=== PATIENT | female | born 1985 | race Caucasian/White ===

== ENCOUNTER 2016-09-01 05:50 | Inpatient (IN) | payer MEDICAID ==
[~2016-09-01] VITALS: Ht 157.5 cm; Wt 95.4 kg
[~2016-09-01 05:50] MED LIST: PREN1TAB53 PO; no routine meds
[2016-09-01] MEDS ORDERED: LIDOCAINE 1% (10mg/ml) 2ml SDV ID PRN (06:00)
[2016-09-01] MEDS ORDERED: ACETAMINOPHEN 500 MG TABLET PO PRN ×2 (06:00→14:45)
[2016-09-01] MEDS ORDERED: MAG-AL + SIM LIQUID 30 ML UDC PO PRN ×2 (06:00→14:45)
[2016-09-01] MEDS ORDERED: OXYTOCIN 30 UNIT in D5LR 500 ML SCH (06:00)
[2016-09-01] MEDS ORDERED: CALCIUM CARBONATE 500mg Chewable TAB PO PRN ×2 (06:00→14:45)
[2016-09-01] MEDS: LR 1,000 ML IV PRN ×2 (06:33→08:54)
[2016-09-01 06:38] LABS: HCT - HEMATOCRIT 34.1 % (36-46); HGB - HEMOGLOBIN 11.3 GM/DL (12-16); MEAN CORPUSCULAR HGB 27.2 UUG (26-34); MEAN CORPUSCULAR HGB CONC(MCHC 33.1 GM/DL (31-37); MEAN PLATELET VOLUME 10.6 UM3 (9.4-12.4); RED BLOOD COUNT 4.16 M/MM3 (4.00-5.20); WBC - WHITE BLOOD COUNT 12.7 T/MM3 (4.5-11.0)
[2016-09-01 06:46] VITALS: BP 135/67; PULSE 56; RESP 18; TEMP 98.2; O2SAT 98
[2016-09-01] MEDS ORDERED: D5LR 1,000 ML IV PRN (07:00)
[2016-09-01 07:12] VITALS: RESP 18
--- NOTE | 2016-09-01 09:02 | ANESOB ---
Epidural/ Date/Time DATE: 09/01/16 TIME: 09:00 Preop Diagnosis Procedure: Labor Epidural Plan: Epidural Height: 5 ' 2.00 " Weight: 95.400 kg BMI: kg/m2 Temperature: 98.2 Blood Pressure: 135/67 Heart Rate: 56 Respiratory Rate: 18 SaO2: 98 NPO since: Midnight P:2 Medications & Allergies Inpatient Medications Current Medications Medications (Trade) Dose Ordered Sig/Cam Start Time Stop Time Status Last Admin Dose Admin Lidocaine HCl 0.2 mg 0.2 mg PRN PRN 09/01/16 06:00 Lactated Ringer's (Lactated Ringers) 1,000 ml @ 0 mls/hr Q0M PRN 09/01/16 06:30 09/01/16 08:54 0 MLS/HR Acetaminophen (Tylenol Extra Strength) 1-2 TABS = 500-1,000 MG Q4H PRN 09/01/16 06:00 Al Hydroxide/Mg Hydroxide (Maalox) 30 ml Q4H PRN 09/01/16 06:00 Calcium Carbonate 1-2 TABS Q2H PRN 09/01/16 06:00 Dextrose/Lactated Ringer's 1,000 ml @ 0 mls/hr Q0M PRN 09/01/16 07:00 09/01/16 06:33 0 MLS/HR Oxytocin/Dextrose/ Lactated Ringer's (Pitocin/D5lr) 503 ml @ 0 mls/hr Q0M 09/01/16 06:00 09/01/16 06:33 0 MLS/HR Vits W-Ca,Fe,Fa(<1MG) () 1 Tab Tablet, 1 TAB PO DAILY, ( Reported) Last Taken: on 08/01/16 0800 [no routine meds] , (Reported) Coded Allergies: No Known Allergies (Unverified , 08/22/16) Medical/Surgical History Anesthesia PMH: Denies: *Angina, *Diabetes, *Hypertension, *DE, Anesthesia Reactions, Asthma, CHF, COPD, CVA/Stroke/TIA, Cancer, Hepatitis, Hiatal Hernia, Malignant Hyperthermia, Pacemaker, Pneumonia, Reflux, Seizures, Tuberculosis Smoking Status: Never smoker Does patient use chewing tobac: No Second Hand Exposure: No Substance Use Type: does not use Alcohol Intake: none Hx of Motion Sickness: No Complications During : No Pertinent Findings Laboratory Tests 09/01/16 06:31 EKG Rhythm: Sinus Rhythm Physical Exam Respiratory: Lungs clear Cardiovascular: Regular rate, rhythm Airway Assessment Mallampati Score: II TMD: 3 Fingerbreadths Neck Extension: Good Overall Assessment: May Be Diff Intubation ASA: 2 Discussion Discussed risks/options/alternatives of anesthesia. Patient consents. Nursing pain assessment noted. Present for Discussion: Present: Spouse Attestation Statement Prior to the delivery of any anesthetic medication, I examined the patient, developed the plan, obtained the patient's consent and discussed the risk and benefits of the procedure with the patient/guardian. If the note happens to be signed after anesthesia start time, it is only due to providing efficient care of the patient and documenting at a time when the computer is available. STEFAN MIGUEL MEDICAL ASSOCIATE Sep 01, 2016 09:01
[2016-09-01] MEDS ORDERED: ROPIVACAINE 1% 200 MG, SUFENTANIL 50 MCG in NORMAL SALINE 80 ML EPI PRN (09:15)
[2016-09-01] MEDS ORDERED: ONDANSETRON 4mg/2ml INJECTION IV PRN (09:15)
[2016-09-01] MEDS ORDERED: DiphenhydrAMINE 50 MG/ML INJECTION IV PRN (09:15)
[2016-09-01] MEDS ORDERED: NALOXONE 0.4mg/ml INJECTION IV PRN (09:15)
[2016-09-01] MEDS ORDERED: OXYTOCIN 30 UNIT in D5W 500 ML IV ONE (14:32)
[2016-09-01] MEDS ORDERED: PHENYLEPHRINE RECTAL SUPPOSITORY RECTALLY PRN (14:45)
[2016-09-01] MEDS ORDERED: MILK OF MAGNESIA 30 ML SUSP PO PRN (14:45)
[2016-09-01] MEDS ORDERED: HYDROCORTISONE 2.5% CREAM 30 GM RECTALLY PRN (14:45)
[2016-09-01] MEDS ORDERED: DiphenhydrAMINE 25 MG CAPSULE PO PRN (14:45)
--- NOTE | 2016-09-01 15:43 | ANESPO ---
Post-Op Note Date 09/01/16 Time: 15:42 Status Pt Participated in Evaluation: Pt participated in person Vital Signs Date Time Temp Pulse Resp B/P Pulse Ox O2 Delivery O2 Flow Rate FiO2 09/01/16 07:12 18 09/01/16 06:46 98.2 56 135/67 98 Room Air Respiratory Function: Airway patent, Regular respirations Cardiovascular Function: Regular pulse Mental Status: Alert/oriented Pain Level Intensity: 0 Hydration: Taking po fluids Complications during Recovery None apparent Follow-Up Instructions Instructions Per Surgeon ALAN MUNGUIA I POCKET ASSEMBLER Sep 01, 2016 15:43
--- NOTE | 2016-09-01 17:29 | LDNFPDOC ---
Delivery Note Date of Delivery 09/01/16 Diagnosis: : 3 Para: 2 Rubella: Immune GBS Status: Negative Weeks: 39 Days: 1 Sex and Viability: Viable Male APGARS: [place] Name: Rai Fay [place] Weight: 3453 grams Estimated Blood Loss: 400 cc Brief Description Patient is a 30 year old, 3, para 2 who presented to labor and delivery at 39 weeks 1 day for scheduled induction of labor due to logistics. The only antepartum complication was maternal cervical dysplasia with a recent LSIL pap. Upon admission, patient was noted to be dilated to 2 centimeters though unchanged from her office's exam last week. Pitocin was started for induction of labor and titrated per protocol until a good contraction pattern was achieved. An epidural anesthesia was placed for labor analgesia per patient's wishes. Once she was comfortable, artificial rupture of membranes was performed to augment labor with return of copious clear fluid. She was then dilated to 4 centimeters approximately 5 hours after the start of the induction. Patient progressed to complete dilation within 2 hours. No other complication noted. Patient remained in the labor room, was prepped and draped in the usual sterile fashion. Infant delivered spontaneously over an intact perineum after pushing for 15 minutes. The was placed on the patient's abdomen for [id number] after he had a good vigorous cry. The cord was clamped and cut, and the placenta spontaneously delivered without difficulty. A vaginal sweep was then performed. Hemostasis was noted. No complications. No atony. Infant and mother are doing well at this time. SAUD BACON MD Sep 01, 2016 14:32
--- NOTE | 2016-09-01 17:38 | NUR ---
blood pressures reported blood pressures systolic of 140s to dr knox. states to continue to monitor patient per protocol.
[2016-09-01 18:33] VITALS: BP 126/59; PULSE 63; RESP 16; TEMP 97.5; O2SAT 97
--- NOTE | 2016-09-01 18:35 | NUR ---
Epidural Epidural catheter removed without complications, tip intact, no S/S of infection noted. Area cleansed with alcohol, betadine and covered with a bandaid. Pt. educated about S/S of infection and to call doctor with concerns.
--- NOTE | 2016-09-01 18:40 | NUR ---
ambulate/void patient out of bed and ambulated to bathroom, denies dizziness or lightheadedness. patient voided 700ml clear yellow urine without complaints. patient performed self leslie care. patient then ambulated back to bed without complaints. will continue to monitor.
[2016-09-01] MEDS: HYDROCODONE/APAP 5 mg/325 mg TABLET PO PRN ×2 (18:57→23:21)
[2016-09-01] MEDS: IBUPROFEN 800 MG TABLET PO PRN (18:57)
[2016-09-01 23:15] VITALS: BP 118/64; PULSE 55; RESP 16; TEMP 98.2; O2SAT 98
--- NOTE | 2016-09-01 23:33 | NUR ---
Chart Check 24 hour chart check completed
[2016-09-02] MEDS: HYDROCODONE/APAP 5 mg/325 mg TABLET PO PRN ×4 (00:17→18:17)
[2016-09-02] MEDS: IBUPROFEN 800 MG TABLET PO PRN ×2 (02:22→13:16)
--- NOTE | 2016-09-02 02:40 | NUR ---
shift summary VSS, lochia scant, fundus firm and voiding. patient performing all leslie care and cares for self and . ibuprofen and norco administered for pain, patient reports pain controlled. patient up ad sander in room. no further changes in status noted. will continue to monitor and educate.
[2016-09-02 06:35] LABS: HCT - HEMATOCRIT 33.1 % (36-46); HGB - HEMOGLOBIN 10.8 GM/DL (12-16); MEAN CORPUSCULAR HGB 26.9 UUG (26-34); MEAN CORPUSCULAR HGB CONC(MCHC 32.6 GM/DL (31-37); MEAN CORPUSCULAR VOLUME 82.5 UM3 (80-100); MEAN PLATELET VOLUME 10.2 UM3 (9.4-12.4); RED BLOOD COUNT 4.01 M/MM3 (4.00-5.20); WBC - WHITE BLOOD COUNT 14.3 T/MM3 (4.5-11.0)
[2016-09-02 08:31] VITALS: BP 106/61; PULSE 56; RESP 16; TEMP 98.1; O2SAT 97
[2016-09-02] MEDS ORDERED: DOCUSATE CALCIUM 240 MG CAPSULE PO SCH (09:00)
--- NOTE | 2016-09-02 11:03 | PNPDOC ---
Progress Note PPD1 Weeks: 39 Days: 1 Rubella: Immune GBS: Negative Blood Type:O pos Subjective 09/02/16 Lochia: Minimal Pain: Controlled Voiding: Voiding Nausea and Vomiting: No Nausea/Vomiting Objective Vital Signs Date Time Temp Pulse Resp B/P Pulse Ox O2 Delivery O2 Flow Rate FiO2 09/02/16 08:31 98.1 56 16 106/61 97 Room Air General: Alert and Oriented Abdomen: Fundus Firm, Non-tender Laboratory Item Value Date Time Hemoglobin 11.3 GM/DL L 09/01/16 0631 Hemoglobin 10.8 GM/DL L 09/02/16 0629 Assessment SP, Plan Routine Care, Continue PNV SAUD BACON MD Sep 02, 2016 11:02
[2016-09-02 15:43] VITALS: BP 121/64; PULSE 60; RESP 20; TEMP 97.9
[2016-09-02 22:12] VITALS: BP 120/67; PULSE 50; RESP 16; TEMP 98.1
[2016-09-03] MEDS: HYDROCODONE/APAP 5 mg/325 mg TABLET PO PRN ×2 (01:40→07:32)
[2016-09-03] MEDS: IBUPROFEN 800 MG TABLET PO PRN ×2 (01:40→10:58)
--- NOTE | 2016-09-03 01:49 | NUR ---
Chart Check 24 hour chart check completed
--- NOTE | 2016-09-03 02:31 | NUR ---
SHIFT SUMMARY: VSS, pt's uterine cramping controlled with PO Motrin and [place] 5. Fundus firm at umbilicus, light lochia. Pt up ad sander, tolerating general diet, voiding and performing own personal cares. Pt bonding and caring for baby appropriately. SIMA Good, has been here this evening and supportive.
[2016-09-03 06:33] VITALS: BP 156/82; PULSE 50; RESP 16; TEMP 98; O2SAT 97
[2016-09-03 09:57] VITALS: BP 131/73; PULSE 50
--- NOTE | 2016-09-03 10:01 | PNPDOC ---
Progress Note PPD1 Weeks: 39 Days: 1 Rubella: Immune GBS: Negative Blood Type:O pos Subjective 09/03/16 Lochia: Minimal Pain: Controlled Voiding: Voiding Nausea and Vomiting: No Nausea/Vomiting Objective Vital Signs Date Time Temp Pulse Resp B/P Pulse Ox O2 Delivery O2 Flow Rate FiO2 09/03/16 10:01 98.0 50 16 131/73 97 Room Air General: Alert and Oriented Abdomen: Fundus Firm, Non-tender Assessment SP, Plan Routine Care, Discharge Home, Continue PNV SAUD BACON MD Sep 03, 2016 10:01
[2016-09-03] MEDS ORDERED: IBUP-1547 PO (10:03)
[2016-09-03] MEDS ORDERED: DOCU-168 PO (10:03)
--- NOTE | 2016-09-03 11:21 | NUR ---
Shower Mom declined shower; prefers to take one at home. Addendum: 09/03/16 at 1121 by CAROLINE HEWITT RN Amended: Links added.
== END 2016-09-03 11:10 | disposition home or self-care (01) | DRG 775 ==
LOC: MC 05:50
PROVIDERS: ADMIT Obstetrics & Gynecology; ATTEND Obstetrics & Gynecology
PROC: 10E0XZZ Delivery of Products of Conception, External Approach (ICD-10-PCS; principal; 2016-09-01)
PROC: 3E033VJ Introduction of Other Hormone into Peripheral Vein, Percutaneous Approach (ICD-10-PCS; 2016-09-01)
PROC: 10907ZC Drainage of Amniotic Fluid, Therapeutic from Products of Conception, Via Natural or Artificial Opening (ICD-10-PCS; 2016-09-01)
DX: O26.893 Other specified pregnancy related conditions, third trimester (principal); O99.89 Other specified diseases and conditions complicating pregnancy, childbirth and the puerperium; N87.9 Dysplasia of cervix uteri, unspecified; O32.8XX0 Maternal care for other malpresentation of fetus, not applicable or unspecified; O09.03 Supervision of pregnancy with history of infertility, third trimester; Z3A.39 39 weeks gestation of pregnancy; Z37.0 Single live birth
CPT/HCPCS: 36415; 85027